=== PATIENT | male | born 1950 | race Caucasian/White ===

== ENCOUNTER → 2016-12-29 | Outpatient (CLI) | payer MEDICARE, OTHER | LOC: HEART 5 15:28 | DX: J44.9 Chronic obstructive pulmonary disease, unspecified (principal); I35.1 Nonrheumatic aortic (valve) insufficiency; R07.89 Other chest pain; R93.1 Abnormal findings on diagnostic imaging of heart and coronary circulation | CPT/HCPCS: 94060; 94729 ==